=== PATIENT | male | born 1965 | race Caucasian/White ===

== ENCOUNTER 2020-05-28 17:45 | Inpatient (IN) | payer BC ==
[~2020-05-28] VITALS: Ht 175.3 cm; Wt 99.5 kg
[2020-05-28 21:10] LABS: BASO # 0.1 x10^3/uL (0.0-0.2); BASO % 2 % (0-3); EOS # 0.1 x10^3/uL (0.0-0.7); EOS % 2 % (0-3); HEMATOCRIT 22.4 % (39.0-53.0); LYMPH # 2.4 x10^3/uL (1.0-4.8); LYMPH % 34 % (24-48); MEAN CORPUSCULAR HEMOGLOBIN 17 pg (25-35); MEAN CORPUSCULAR HGB CONC 29 g/dL (31-37); MEAN CORPUSCULAR VOLUME 57 fL (79-100); MONO # 0.7 x10^3/uL (0.0-1.1); MONO % 11 % (0-9); NEUT # 3.5 x10^3/uL (1.8-7.7); NEUT % 51 % (31-73); PLATELET COUNT 329 x10^3/uL (140-400); RED BLOOD COUNT 3.94 x10^6/uL (4.30-5.70); RED CELL DISTRIBUTION WIDTH 17.9 % (11.5-14.5); WHITE BLOOD COUNT 6.9 x10^3/uL (4.0-11.0)
[2020-05-28 21:14] LABS: HEMOGLOBIN 6.6 g/dL (13.0-17.5)
[2020-05-28 21:16] LABS: CALCIUM 8.4 mg/dL (8.5-10.1); CREATININE 1.1 mg/dL (0.7-1.3); GFR 70.3; POTASSIUM 3.9 mmol/L (3.5-5.1)
[2020-05-28 21:23] LABS: ALBUMIN 3.8 g/dL (3.4-5.0); ALBUMIN/GLOBULIN RATIO 1.1 (1.0-1.7); TOTAL BILIRUBIN 0.3 mg/dL (0.2-1.0); TOTAL PROTEIN 7.4 g/dL (6.4-8.2)
--- NOTE | 2020-05-28 21:26 | PHYS DOC ---
Past Medical History Past Medical History: Asthma Past Surgical History: No Surgical History Smoking Status: Never Smoker Alcohol Use: Occasionally General Adult EDM: Chief Complaint: ABNORMAL LABS HPI: HPI: Patient is a 54 year old male who saw his doctor this week for headaches has been going on for quite some time as well as fatigue. Patient had blood work drawn that showed hemoglobin of 6 and was sent in for evaluation. Patient describes some dizziness and dyspnea with exertion as well as extreme fatigue. Patient denies any pain right now but has had some intermittent headaches over the last several months. Patient denies any rectal bleeding. Review of Systems: Review of Systems: Constitutional: Denies fever or chills. [] Complains of generalized fatigue Eyes: Denies change in visual acuity. [] HENT: Denies nasal congestion or sore throat. [] Respiratory: Denies cough or shortness of breath. [] Cardiovascular: Denies chest pain or edema. [] GI: Denies abdominal pain, nausea, vomiting, bloody stools or diarrhea. [] : Denies dysuria. [] Musculoskeletal: Denies back pain or joint pain. [] Integument: Denies rash. [] Neurologic: Complains of intermittent headache but no focal weakness or sensory changes. [] Endocrine: Denies polyuria or polydipsia. [] Lymphatic: Denies swollen glands. [] Psychiatric: Denies depression or anxiety. [] Heart Score: Risk Factors: Risk Factors: DM, Current or recent (<one month) smoker, HTN, HLP, family history of CAD, obesity. Risk Scores: Score 0 - 3: 2.5% MACE over next 6 weeks - Discharge Home Score 4 - 6: 20.3% MACE over next 6 weeks - Admit for Clinical Observation Score 7 - 10: 72.7% MACE over next 6 weeks - Early Invasive Strategies Physical Exam: PE: Constitutional: Well developed, well nourished, no acute distress, non-toxic appearance. [] HENT: Normocephalic, atraumatic, bilateral external ears normal, moist mucosa nose normal. [] Eyes: PERRLA, EOMI, pale conjunctiva l, no discharge. [] Neck: Normal range of motion, no tenderness, supple, no stridor. [] Cardiovascular:Heart rate regular rhythm, pulses intact cap refill brisk Lungs & Thorax: Bilateral breath sounds clear, no respiratory distress Abdomen: soft, no tenderness, no masses, no pulsatile masses. [] Skin: Back: No tenderness, no CVA tenderness. [] Extremities: No tenderness, no cyanosis, no clubbing, ROM intact, no edema. [] Neurologic: Alert and oriented X 3, normal motor function, normal sensory function, no focal deficits noted. [] Psychologic: Affect normal, judgement normal, mood normal. [] Current Patient Data: Labs: Laboratory Tests Test 05/28/20 21:00 05/28/20 21:25 05/28/20 21:50 White Blood Count 6.9 x10^3/uL Red Blood Count 3.94 x10^6/uL Hemoglobin 6.6 g/dL Hematocrit 22.4 % Mean Corpuscular Volume 57 fL Mean Corpuscular Hemoglobin 17 pg Mean Corpuscular Hemoglobin Concent 29 g/dL Red Cell Distribution Width 17.9 % Platelet Count 329 x10^3/uL Neutrophils (%) (Auto) 51 % Lymphocytes (%) (Auto) 34 % Monocytes (%) (Auto) 11 % Eosinophils (%) (Auto) 2 % Basophils (%) (Auto) 2 % Neutrophils # (Auto) 3.5 x10^3/uL Lymphocytes # (Auto) 2.4 x10^3/uL Monocytes # (Auto) 0.7 x10^3/uL Eosinophils # (Auto) 0.1 x10^3/uL Basophils # (Auto) 0.1 x10^3/uL Platelet Estimate Adequate Large Platelets Mod Polychromasia Slight Hypochromasia Marked Anisocytosis Slight Microcytosis Marked Tear Drop Cells Ovalocytes Mod Sodium Level 141 mmol/L Potassium Level 3.9 mmol/L Chloride Level 106 mmol/L Carbon Dioxide Level 25 mmol/L Anion Gap 10 Blood Urea Nitrogen 11 mg/dL Creatinine 1.1 mg/dL Estimated GFR (Cockcroft-Gault) 70.3 BUN/Creatinine Ratio 10 Glucose Level 115 mg/dL Calcium Level 8.4 mg/dL Iron Level 10 ug/dL Ferritin 3 ng/mL Total Bilirubin 0.3 mg/dL Aspartate Amino Transf (AST/SGOT) 25 U/L Alanine Aminotransferase (ALT/SGPT) 30 U/L Alkaline Phosphatase 78 U/L Lactate Dehydrogenase 180 U/L Total Protein 7.4 g/dL Albumin 3.8 g/dL Albumin/Globulin Ratio 1.1 Prothrombin Time 14.5 SEC Prothromb Time International Ratio 1.2 Activated Partial Thromboplast Time 25 SEC Stool Occult Blood Negative Laboratory Tests Test 05/28/20 21:00 05/28/20 21:50 White Blood Count 6.9 x10^3/uL Red Blood Count 3.94 x10^6/uL Hemoglobin 6.6 g/dL Hematocrit 22.4 % Mean Corpuscular Volume 57 fL Mean Corpuscular Hemoglobin 17 pg Mean Corpuscular Hemoglobin Concent 29 g/dL Red Cell Distribution Width 17.9 % Platelet Count 329 x10^3/uL Neutrophils (%) (Auto) 51 % Lymphocytes (%) (Auto) 34 % Monocytes (%) (Auto) 11 % Eosinophils (%) (Auto) 2 % Basophils (%) (Auto) 2 % Neutrophils # (Auto) 3.5 x10^3/uL Lymphocytes # (Auto) 2.4 x10^3/uL Monocytes # (Auto) 0.7 x10^3/uL Eosinophils # (Auto) 0.1 x10^3/uL Basophils # (Auto) 0.1 x10^3/uL Platelet Estimate Adequate Large Platelets Mod Polychromasia Slight Hypochromasia Marked Anisocytosis Slight Microcytosis Marked Tear Drop Cells Ovalocytes Mod Sodium Level 141 mmol/L Potassium Level 3.9 mmol/L Chloride Level 106 mmol/L Carbon Dioxide Level 25 mmol/L Anion Gap 10 Blood Urea Nitrogen 11 mg/dL Creatinine 1.1 mg/dL Estimated GFR (Cockcroft-Gault) 70.3 BUN/Creatinine Ratio 10 Glucose Level 115 mg/dL Calcium Level 8.4 mg/dL Total Bilirubin 0.3 mg/dL Aspartate Amino Transf (AST/SGOT) 25 U/L Alanine Aminotransferase (ALT/SGPT) 30 U/L Alkaline Phosphatase 78 U/L Total Protein 7.4 g/dL Albumin 3.8 g/dL Albumin/Globulin Ratio 1.1 Stool Occult Blood Negative Laboratory Tests Test 05/28/20 21:00 White Blood Count 6.9 x10^3/uL (4.0-11.0) Red Blood Count 3.94 x10^6/uL (4.30-5.70) L Hemoglobin 6.6 g/dL (13.0-17.5) *L Hematocrit 22.4 % (39.0-53.0) L Mean Corpuscular Volume 57 fL (79-100) L Mean Corpuscular Hemoglobin 17 pg (25-35) L Mean Corpuscular Hemoglobin Concent 29 g/dL (31-37) L Red Cell Distribution Width 17.9 % (11.5-14.5) H Platelet Count 329 x10^3/uL (140-400) Neutrophils (%) (Auto) 51 % (31-73) Lymphocytes (%) (Auto) 34 % (24-48) Monocytes (%) (Auto) 11 % (0-9) H Eosinophils (%) (Auto) 2 % (0-3) Basophils (%) (Auto) 2 % (0-3) Neutrophils # (Auto) 3.5 x10^3/uL (1.8-7.7) Lymphocytes # (Auto) 2.4 x10^3/uL (1.0-4.8) Monocytes # (Auto) 0.7 x10^3/uL (0.0-1.1) Eosinophils # (Auto) 0.1 x10^3/uL (0.0-0.7) Basophils # (Auto) 0.1 x10^3/uL (0.0-0.2) Platelet Estimate Pending Sodium Level 141 mmol/L (136-145) Potassium Level 3.9 mmol/L (3.5-5.1) Chloride Level 106 mmol/L (98-107) Carbon Dioxide Level 25 mmol/L (21-32) Anion Gap 10 (6-14) Blood Urea Nitrogen 11 mg/dL (8-26) Creatinine 1.1 mg/dL (0.7-1.3) Estimated GFR (Cockcroft-Gault) 70.3 BUN/Creatinine Ratio 10 (6-20) Glucose Level 115 mg/dL (70-99) H Calcium Level 8.4 mg/dL (8.5-10.1) L Total Bilirubin 0.3 mg/dL (0.2-1.0) Aspartate Amino Transferase (AST) 25 U/L (15-37) Alanine Aminotransferase (ALT) 30 U/L (16-63) Alkaline Phosphatase 78 U/L (46-116) Total Protein 7.4 g/dL (6.4-8.2) Albumin 3.8 g/dL (3.4-5.0) Albumin/Globulin Ratio 1.1 (1.0-1.7) Laboratory Tests 05/28/20 21:00 Laboratory Tests 05/28/20 21:00 Vital Signs: Vital Signs Date Time Temp Pulse Resp B/P (MAP) Pulse Ox O2 Delivery O2 Flow Rate FiO2 05/28/20 19:25 98.6 78 18 171/98 (122) 100 Room Air 98.6 EKG: EKG: [] EKG interpreted by me normal sinus rhythm rate 65 left axis deviation, normal ST segments normal intervals Radiology/Procedures: Radiology/Procedures: [][facility] [address] [place] [address] IMAGING REPORT Signed PATIENT: RADU LEES DACCOUNT: [id number] : 1965 LOCATION: ER AGE: 54 SEX: M EXAM STATUS: REG ER ORD. PHYSICIAN: RUMA FRIEDMAN MD REASON: WEAKNESS PROCEDURE: PORTABLE CHEST 1V EXAM: AP View of the chest DATE: 05/28/2020 8:57 PM INDICATION: Reason: WEAKNESS / Spl. Instructions: / History: COMPARISON: No Prior FINDINGS: The heart is not enlarged. Mediastinal and hilar contours are normal. No focal parenchymal airspace opacity. No pleural effusion or pneumothorax. Retrocardiac density may represent hiatal hernia. IMPRESSION: 1. No radiographic evidence for acute cardiopulmonary process. 2. Retrocardiac density may represent hiatal hernia. Electronically signed by: Aaron Gottlieb MD (05/28/2020 9:39 PM) [facility] DICTATED and SIGNED BY: AARON GOTTLIEB MD DATE: 05/28/202138 Course & Med Decision Making: Course & Med Decision Making Pertinent Labs and Imaging studies reviewed. (See chart for details) [] 54-year-old male presents with symptomatic anemia. Patient found to have a hemoglobin of 6. Patient is hemodynamically stable. I discussed the case with Dr. Celeste and we will hold off on transfusion now until he is seen by hematology oncology so that they can complete their evaluation for the etiology of his anemia. Dragon Disclaimer: Dragon Disclaimer: This electronic medical record was generated, in whole or in part, using a voice recognition dictation system. Departure Departure Impression: Primary Impression: Symptomatic anemia Disposition: 09 ADMITTED INPT THIS HOSP Admitting Physician: AG (DENNISE) Condition: STABLE Referrals: NON,STAFF (PCP) RUMA FRIEDMAN MD May 28, 2020 21:26
--- NOTE | 2020-05-28 21:42 | RAD ---
EXAM: AP View of the chest DATE: 05/28/2020 8:57 PM INDICATION: Reason: WEAKNESS / Spl. Instructions: / History: COMPARISON: No Prior FINDINGS: The heart is not enlarged. Mediastinal and hilar contours are normal. No focal parenchymal airspace opacity. No pleural effusion or pneumothorax. Retrocardiac density may represent hiatal hernia. IMPRESSION: 1. No radiographic evidence for acute cardiopulmonary process. 2. Retrocardiac density may represent hiatal hernia. Electronically signed by: Aaron Serra MD (05/28/2020 9:39 PM) [facility]
[2020-05-28 21:58] LABS: ANISOCYTOSIS SLIGHT; HYPOCHROMIA MARKED; MICROCYTOSIS MARKED; OVALOCYTES MOD; PLT ESTIMATE ADEQUATE (ADEQUATE); POLYCHROMASIA SLIGHT
[2020-05-28 22:10] LABS: FECAL OB PT NEGATIVE (NEG)
[2020-05-28 22:12] LABS: PROTHROMBIN TIME PATIENT 14.5 SEC (11.7-14.0)
[2020-05-28] MEDS ORDERED: ONDANSETRON PF 4 MG/2 ML VIAL. IV PRN (22:15)
[2020-05-29] VITALS (13 sets, daily range): BP systolic 118–154; BP diastolic 72–85
[2020-05-29] MEDS ORDERED: OMEP20CA16 PO (00:50)
[2020-05-29] MEDS ORDERED: UBRO100T PO (00:50)
[2020-05-29] MEDS ORDERED: MELO7.5T29 PO (00:50)
[2020-05-29] MEDS ORDERED: LOSA100T14 PO (00:50)
[2020-05-29] MEDS ORDERED: ALBU2.5V8 PO (00:50)
[2020-05-29] MEDS ORDERED: FLUT1DIS5 INH (00:50)
[2020-05-29] MEDS ORDERED: ALBUTEROL SULFATE 2.5 MG/3 ML NEBU. INH PRN (01:00)
--- NOTE | 2020-05-29 04:58 | NUR ---
The patient, RADU LEES, 54 y/o, M admitted by CARLOTA BOWDEN MD, was given written information regarding hospital policies, unit procedures and contact persons. 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
--- NOTE | 2020-05-29 05:02 | NUR ---
Contacted Dr. Celeste and restarted patients home medications and reviewed lab and awaiting consult to review labs.
[2020-05-29] MEDS: ALBUTEROL SULFATE 2.5 MG/3 ML NEBU. NEB SCH ×4 (07:33→20:42)
[2020-05-29] MEDS: BUDESONIDE 0.5 MG/2 ML NEBU. NEB SCH ×2 (07:33→20:00)
[2020-05-29] MEDS: MELOXICAM 7.5 MG TABLET PO SCH (09:07)
[2020-05-29] MEDS: LOSARTAN POTASSIUM 50 MG TABLET. PO SCH (09:07)
--- NOTE | 2020-05-29 09:07 | PDOC ---
FOLLOW UP Brief Hematology note: Patient is a 54 year old with microcytic anemia. He presented with fatigue and headache and was found to have Hb 6.7. No prior labs available for comparison. I recommended lab work at this time including B12, iron panel, epo level, SPEP, free light chains, LDH and haptoglobin. Can hold off on transfusion at this time. Recommend GI eval if labs indicate iron deficiency. Full consult to follow. Gómez Aragon MD Hematology HEATHER ARAGON MD May 29, 2020 09:07
[2020-05-29] MEDS: PANTOPRAZOLE 40 MG TABLET.DR. PO SCH (09:08)
[2020-05-29] MEDS: ACETAMINOPHEN 325 MG TABLET. PO PRN ×2 (09:09→16:19)
--- NOTE | 2020-05-29 11:52 | HP ---
ADMIT DATE: 05/29/2020 CHIEF COMPLAINT: Shortness of breath and abnormal labs. HISTORY OF PRESENT ILLNESS: The patient is a pleasant 54-year-old male who works at the [employer] in [place]. 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 Basically, he has been short of breath. He has been fatigued for several weeks. He went to his doctor to have a checkup and his hemoglobin was 6. He was told to come to the ER. The patient is now being admitted. We are going to transfuse him. I just called the quiller operator. They are going to be seeing the patient. We are also going to consult GI to consider endoscopy. It should be noted that the patient rates his symptoms at 7/10. He has associated anxiety and he tried increasing his home meds, but that did not work, described his symptoms as irritating. PAST MEDICAL HISTORY: Asthma. ALLERGIES: None. FAMILY HISTORY: Diabetes. SOCIAL HISTORY: He does not drink, smoke or take drugs. He works at the [employer]. 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 His also works at the [employer]. MEDICATIONS: Reviewed, please refer to the MRAD. REVIEW OF SYSTEMS: GENERAL: He complains weakness. SKIN: No bruising, hair changes or rashes. HEENT: He complains of headache. HEART: No history of palpitations, chest pain or shortness of breath on exertion. PULMONARY: He complains of shortness of breath. GASTROINTESTINAL: Denies changes in appetite, nausea, vomiting, diarrhea or constipation. GENITOURINARY: No history of frequency, urgency, hesitancy or nocturia. NEUROLOGIC: Denies history of numbness, tingling, tremor or weakness. PSYCHIATRIC: No history of panic, anxiety or depression. ENDOCRINE: No history of heat or cold intolerance, polyuria or polydipsia. EXTREMITIES: Denies muscle weakness, joint pain, pain on walking or stiffness. PHYSICAL EXAMINATION: VITALS: Within normal limits and are stable. GENERAL: No apparent distress. Alert and oriented. HEENT: Normal cephalic atraumatic, external auditory canals are patent. Eyes: Extraocular muscles are intact, pupils are equally round and reactive to light and accommodation. MUSCULOSKELETAL: Well developed, well nourished, good range of motion. ENDOCRINE: No thyromegaly was palpated. LYMPHATICS: No cervical chain or axillary nodes were noted. HEMATOPOIETIC: No bruising. NECK: Supple, no JVD, no thyromegaly was noted. LUNGS: Clear to auscultation in all lung jones without rhonchi or wheezing. HEART: RRR, S1, S2 present. Peripheral pulses intact, no obvious murmurs were noted. ABDOMEN: Soft, nontender. Positive bowel sounds no organomegaly, normal bowel sounds. EXTREMITIES: Without any cyanosis, clubbing, or edema. Pedal pulses intact, Homans sign is negative. NEUROLOGIC: Normal speech, normal tone. A and O x 3, moves all extremities, no obvious focal deficits. PSYCHIATRIC: Normal affect, normal mood. Stable. SKIN: He is pale. VASCULAR: Good capillary refill, neurovascular bundle appears to be intact. LABORATORY DATA: Hemoglobin is 6.6. ASSESSMENT AND PLAN: Severe anemia with incidental finding of a headache. The patient has been admitted. We are going to transfuse 1 unit of packed red blood cells. Consult Hematology/Oncology. Consult GI. DVT prophylaxis. Trend labs. Home meds. Full code. Fecal occult blood testing, p.r.n. Zofran, p.r.n. Toradol. Iron studies. IV fluids. COOPERL Danny HAWKINS DO DR: XIMENA/[place] JOB#: [id number] / [id number]
[2020-05-29 11:56] LABS: URIC ACID 5.4 mg/dL (3.5-7.2)
[2020-05-29] MEDS: KETOROLAC 30 MG/ML VIAL. IVP PRN ×2 (13:54→23:22)
[2020-05-29 20:20] LABS: HEMATOCRIT 24.7 % (39.0-53.0); HEMOGLOBIN 7.3 g/dL (13.0-17.5)
[2020-05-29 23:10] LABS: TRANSFERRIN 421 mg/dL (177-329)
[2020-05-30 04:30] VITALS: BP 123/77
[2020-05-30 07:00] VITALS: BP 132/79
[2020-05-30] MEDS: BUDESONIDE 0.5 MG/2 ML NEBU. NEB SCH ×2 (08:00→20:00)
[2020-05-30] MEDS: LOSARTAN POTASSIUM 50 MG TABLET. PO SCH (08:58)
[2020-05-30] MEDS: PANTOPRAZOLE 40 MG TABLET.DR. PO SCH (08:58)
[2020-05-30] MEDS: MELOXICAM 7.5 MG TABLET PO SCH (08:59)
--- NOTE | 2020-05-30 09:59 | PDOC2 ---
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. For awhile has noted some SOA and dizziness w/ exertion - had to hire someone to mow his lawn. Established care w/ new PCP and had labs - noted w/ anemia and advised to come to the hospital. Denies hematemesis, hematochezia, and melena. Unaware of previous h/o anemia. Denies reflux/heartburn but does have a h/o dysphagia (solids get stuck in midchest, go down w/ water) that is improved w/ daily PPI. No n/v, abd pain, diarrhea, constipation, change in appetite, or weight loss. No previous EGD or colonoscopy. No GB, liver, pancreas, or PUD history. Recently given Rx for Meloxicam - no NSAID use before. PMH: PMH: HTN, asthma, tension headaches, dysphagia left ankle surgery FH: Family History: No pertinent hx (denies GI cancers) Social History: Smoke: Quit ALCOHOL: rare Drugs: None ROS: GEN: +weakness HEENT: Denies blurred vision, sore throat CV: Denies chest pain RESP: +SOA +cough GI: Per HPI : Denies hematuria, dysuria ENDO: Denies weight changes NEURO: +dizziness +headaches MSK: Denies weakness, joint pain/swelling SKIN: Denies jaundice, pruritus Vitals: Vitals: Vital Signs Date Time Temp Pulse Resp B/P (MAP) Pulse Ox O2 Delivery O2 Flow Rate FiO2 05/30/20 08:58 58 123/77 05/30/20 07:00 98.3 97 98.3 05/30/20 04:30 16 Room Air Labs: Labs: Laboratory Tests Test 05/29/20 11:07 05/29/20 20:05 Red Blood Count 3.86 x10^6/uL (4.30-5.70) Absolute Reticulocyte Count 0.070 x10^6/uL (0.020-0.120) Percent Reticulocyte Count 1.8 % (0.5-2.3) Immature Reticulocyte Fraction 0.39 (0.20-0.60) Haptoglobin 123 mg/dL (29-370) Uric Acid 5.4 mg/dL (3.5-7.2) Iron Level 14 ug/dL (65-175) Total Iron Binding Capacity 504 ug/dL (250-450) Iron Saturation 3 % (15-34) Ferritin 3 ng/mL (26-388) Lactate Dehydrogenase 167 U/L (85-227) Vitamin B12 Level 418 pg/mL (247-911) Hemoglobin 7.3 g/dL (13.0-17.5) Hematocrit 24.7 % (39.0-53.0) Mean Corpuscular Hemoglobin Concent 30 g/dL (31-37) Allergies: Coded Allergies: No Known Drug Allergies (Unverified , 05/28/20) Medications: Current Medications Medications (Trade) Dose Ordered Sig/Bonifacio Route PRN Reason Start Time Stop Time Status Last Admin Dose Admin Ketorolac Tromethamine (Toradol 30mg Vial) 30 mg PRN Q6HRS PRN IVP INFLAMMATION 05/29/20 13:45 06/03/20 13:44 05/29/20 23:22 Imaging: Imaging: CXR 05/28 IMPRESSION: 1. No radiographic evidence for acute cardiopulmonary process. 2. Retrocardiac density may represent hiatal hernia. CXR 05/30 pending PE: GEN: NAD HEENT: Atraumatic, PERRL LUNGS: diminished, dry cough HEART: RRR ABD: NABS, S/ND/NT EXTREMITY: No edema SKIN: pale NEURO/PSYCH: A & O 3 A/P: A/P: SOA, dizziness - chronic/worsening JUAN PABLO, Hemoccult negative - Hgb improved a bit w/ 1 unit pRBCs Chronic intermittent dysphagia - improved w/ PPI, no previous EGD - ?hiatal hernia on CXR CRC screen - none R/o COVID-19 Tension headaches - per primary -- Await COVID testing. Monitor Hgb, transfuse as needed. Consider IV iron. Continue PPI. Has Mobic ordered here - ideally would avoid NSAIDs from GI standpoint. Should have EGD and colonoscopy - will review timing w/ Dr. De La Rosa. Hematology following as well. NAVEEN COULTER May 30, 2020 09:59
[2020-05-30] MEDS: ALBUTEROL SULFATE 2.5 MG/3 ML NEBU. NEB SCH (10:56)
[2020-05-30 11:00] VITALS: BP 146/67
--- NOTE | 2020-05-30 11:45 | RAD ---
EXAM: CHEST AP ONLY INDICATION: Reason: worsening cough / Spl. Instructions: / History: . TECHNIQUE: Single view COMPARISON: 05/28/2020 FINDINGS: The heart size is normal. The great vessels appear unremarkable. Stable retrocardiac density compatible with a hiatal hernia. Otherwise there is no hilar or mediastinal mass. The lungs are clear. There is no pleural effusion or pneumothorax. There are no significant osseous abnormalities. IMPRESSION: No active cardiopulmonary disease. Stable hiatal hernia. Electronically signed by: Francisco Aggarwal MD (05/30/2020 11:42 AM) [id number]
--- NOTE | 2020-05-30 12:30 | PDOC2 ---
CONSULT Date of Consult Date of Consult DATE: 05/30/20 TIME: 12:23 Reason for Consult Reason for Consult: Anemia Referring Physician Referring Physician: Dr. Alexander Identification/Chief Complaint Chief Complaint Fatigue and shortness of breath Source Source: Chart review, Patient History of Present Illness Reason for Visit: Sachin Gallardo is a 54-year-old male who has been admitted to the hospital for further evaluation and management of anemia. He was initially seen in the emergency room due to worsening fatigue and shortness of breath. 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 He reports history of shortness of breath and fatigue that dates back to several weeks. He recently obtained lab work at his primary care physician's office and was asked to go to the emergency room due to significant anemia with hemoglobin of 6. He has been admitted to the hospital and has received PRBC transfusion with subsequent improvement in his hemoglobin. He denies any associated symptoms. He has been seen by GI service. Hematology consultation has been sought due to anemia. He denies hematemesis, melena, hematochezia Social History Quit ALCOHOL: rare Drugs: None Current Problem List Problem List Problems Medical Problems: (1) Symptomatic anemia Status: Acute Current Medications Current Medications Current Medications Ondansetron HCl (Zofran) 4 mg PRN Q8HRS PRN IV NAUSEA/VOMITING 1ST CHOICE; Start 05/28/20 at 22:15; Stop 05/29/20 at 22:14; Status DC Albuterol Sulfate (Ventolin Neb Soln) 2.5 mg PRN Q4HRS PRN INH SHORTNESS OF BREATH; Start 05/29/20 at 01:00 Meloxicam (Mobic) 7.5 mg DAILY PO Last administered on 05/30/20at 08:59; Start 05/29/20 at 09:00 Budesonide (Pulmicort) 0.5 mg RTBID NEB Last administered on 05/29/20at 07:33; Start 05/29/20 at 08:00 Losartan Potassium (Cozaar) 100 mg DAILY PO Last administered on 05/30/20at 08:58; Start 05/29/20 at 09:00 Pantoprazole Sodium (Protonix) 40 mg DAILYAC PO Last administered on 05/30/20at 08:58; Start 05/29/20 at 07:30 Albuterol Sulfate (Ventolin Neb Soln) 2.5 mg RTQID NEB Last administered on 05/29/20at 07:33; Start 05/29/20 at 08:00; Stop 05/29/20 at 14:45; Status DC Acetaminophen (Tylenol) 650 mg PRN Q6HRS PRN PO MILD PAIN / TEMP > 100.3'F Last administered on 05/29/20at 16:19; Start 05/29/20 at 07:30 Ketorolac Tromethamine (Toradol 30mg Vial) 30 mg PRN Q6HRS PRN IVP INFLAMMATION Last administered on 05/29/20at 23:22; Start 05/29/20 at 13:45; Stop 06/03/20 at 13:44 Albuterol Sulfate (Ventolin Neb Soln) 2.5 mg [id number] NEB ; Start 05/29/20 at 18:00 Active Scripts Active Reported Advair 500-50 Diskus (Fluticasone/Salmeterol) 1 Each Disk.w.dev 1 Puff INH DAILY Proair Hfa (Albuterol Sulfate) 8.5 Gm Hfa.aer.ad 2 Puff PO PRN Q4HRS PRN Ubrelvy (Ubrogepant) 100 Mg Tablet 100 Mg PO PRN PRN Losartan Potassium 100 Mg Tablet 1 Tab PO DAILY Omeprazole 20 Mg Capsule.dr 1 Cap PO DAILY Meloxicam 7.5 Mg Tablet 1 Tab PO DAILY Allergies Allergies: Coded Allergies: No Known Drug Allergies (Unverified , 05/28/20) ROS General: YES: Fatigue, Malaise; No: Chills, Night Sweats PSYCHOLOGICAL ROS: No: Anxiety, Behavioral Disorder Eyes: No Blurry vision, No Decreased vision HEENT: No: Heacaches, Visual Changes ALLERGY AND IMMUNOLOGY: No: Nasal Congestion Hematological and Lymphatic: YES: Blood Transfusions; No: Blood Clots ENDOCRINE: YES: Malaise/lethargy Respiratory: YES: Shortness of breath; No: Cough, Hemoptysis Cardiovascular: No Chest Pain, No Palpitations Gastrointestinal: No Nausea, No Vomiting Genitourinary: No Dysuria, No Hematuria, No Urgency Musculoskeletal: No Gait Disturbance, No Joint Pain Neurological: No Confusion, No Dizziness Skin: No Dry Skin, No Eczema Physical Exam General: Alert, Oriented X3 HEENT: Atraumatic Lungs: Clear to auscultation Heart: Regular rate Abdomen: Normal bowel sounds, Soft Extremities: No clubbing, No cyanosis Skin: No rashes, No breakdown Neuro: Normal speech MUSCULOSKELETAL: No swelling Vitals VITALS Vital Signs Date Time Temp Pulse Resp B/P (MAP) Pulse Ox O2 Delivery O2 Flow Rate FiO2 05/30/20 11:00 97.8 72 18 146/67 (93) 98 Room Air 97.8 Labs Labs Laboratory Tests Test 05/28/20 21:00 05/28/20 21:25 05/28/20 21:50 05/29/20 11:07 White Blood Count 6.9 x10^3/uL (4.0-11.0) Red Blood Count 3.94 x10^6/uL (4.30-5.70) 3.86 x10^6/uL (4.30-5.70) Hemoglobin 6.6 g/dL (13.0-17.5) Hematocrit 22.4 % (39.0-53.0) Mean Corpuscular Volume 57 fL (79-100) Mean Corpuscular Hemoglobin 17 pg (25-35) Mean Corpuscular Hemoglobin Concent 29 g/dL (31-37) Red Cell Distribution Width 17.9 % (11.5-14.5) Platelet Count 329 x10^3/uL (140-400) Neutrophils (%) (Auto) 51 % (31-73) Lymphocytes (%) (Auto) 34 % (24-48) Monocytes (%) (Auto) 11 % (0-9) Eosinophils (%) (Auto) 2 % (0-3) Basophils (%) (Auto) 2 % (0-3) Neutrophils # (Auto) 3.5 x10^3/uL (1.8-7.7) Lymphocytes # (Auto) 2.4 x10^3/uL (1.0-4.8) Monocytes # (Auto) 0.7 x10^3/uL (0.0-1.1) Eosinophils # (Auto) 0.1 x10^3/uL (0.0-0.7) Basophils # (Auto) 0.1 x10^3/uL (0.0-0.2) Platelet Estimate Adequate (ADEQUATE) Large Platelets Mod Polychromasia Slight Hypochromasia Marked Anisocytosis Slight Microcytosis Marked Tear Drop Cells Ovalocytes Mod Haptoglobin 122 mg/dL (29-370) 123 mg/dL (29-370) Sodium Level 141 mmol/L (136-145) Potassium Level 3.9 mmol/L (3.5-5.1) Chloride Level 106 mmol/L (98-107) Carbon Dioxide Level 25 mmol/L (21-32) Anion Gap 10 (6-14) Blood Urea Nitrogen 11 mg/dL (8-26) Creatinine 1.1 mg/dL (0.7-1.3) Estimated GFR (Cockcroft-Gault) 70.3 BUN/Creatinine Ratio 10 (6-20) Glucose Level 115 mg/dL (70-99) Calcium Level 8.4 mg/dL (8.5-10.1) Iron Level 10 ug/dL (65-175) 14 ug/dL (65-175) Transferrin 421 mg/dL (177-329) Ferritin 3 ng/mL (26-388) 3 ng/mL (26-388) Total Bilirubin 0.3 mg/dL (0.2-1.0) Aspartate Amino Transf (AST/SGOT) 25 U/L (15-37) Alanine Aminotransferase (ALT/SGPT) 30 U/L (16-63) Alkaline Phosphatase 78 U/L (46-116) Lactate Dehydrogenase 180 U/L (85-227) 167 U/L (85-227) Total Protein 7.4 g/dL (6.4-8.2) Albumin 3.8 g/dL (3.4-5.0) Albumin/Globulin Ratio 1.1 (1.0-1.7) Prothrombin Time 14.5 SEC (11.7-14.0) Prothromb Time International Ratio 1.2 (0.8-1.1) Activated Partial Thromboplast Time 25 SEC (24-38) Stool Occult Blood Negative (NEG) Absolute Reticulocyte Count 0.070 x10^6/uL (0.020-0.120) Percent Reticulocyte Count 1.8 % (0.5-2.3) Immature Reticulocyte Fraction 0.39 (0.20-0.60) Uric Acid 5.4 mg/dL (3.5-7.2) Total Iron Binding Capacity 504 ug/dL (250-450) Iron Saturation 3 % (15-34) Vitamin B12 Level 418 pg/mL (247-911) Test 11/8/20 20:05 Hemoglobin 7.3 g/dL (13.0-17.5) Hematocrit 24.7 % (39.0-53.0) Mean Corpuscular Hemoglobin Concent 30 g/dL (31-37) Laboratory Tests Test 05/29/20 20:05 Hemoglobin 7.3 g/dL (13.0-17.5) Hematocrit 24.7 % (39.0-53.0) Mean Corpuscular Hemoglobin Concent 30 g/dL (31-37) Assessment/Plan Assessment/Plan Assessment: Iron deficiency anemia Fatigue secondary to anemia Recommendations: -Results of iron studies which show significant iron deficiency. -We will order iron sucrose 200 mg x 1 today given significant iron deficiency. Continue oral iron replacement after hospital discharge -Given significant iron deficiency of unclear etiology, would recommend diagnostic EGD and colonoscopy. GI is following. -Can consider additional IV iron as outpatient. Can determine need for this depending on hospital course Gómez Aragon MD Medical Oncology/Hematology Ph: [phone] HEATHER ARAGON MD May 30, 2020 12:30
--- NOTE | 2020-05-30 12:47 | NUR ---
SS following for discharge planning. SS reviewed pt chart and discussed with pt RN. Pt is from home with spouse and is currently on room air. 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 GI and Hematology consulted. COVID19 test pending. Per RN, pt being transferred to room 662. Brittney CORRIGAN, notified.
--- NOTE | 2020-05-30 12:57 | PDOC ---
[employer] PROGRESS NOTE Date of Service DOS: DATE: 05/30/20 TIME: 12:52 Chief Complaint Chief Complaint Severe anemia with incidental finding of a headache. The patient has been admitted. We are going to transfuse 1 unit of packed red blood cells. Consult Hematology/Oncology. Consult GI. DVT prophylaxis. Trend labs. Home meds. Full code. Fecal occult blood testing, p.r.n. Zofran, p.r.n. Toradol. Iron studies. IV fluids. History of Present Illness History of Present Illness The patient is a pleasant 54-year-old male who works at the [employer] in [place]. 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 Basically, he has been short of breath. He has been fatigued for several weeks. He went to his doctor to have a checkup and his hemoglobin was 6. He was told to come to the ER. The patient is now being admitted. We are going to transfuse him. I just called the belt loop cutter. They are going to be seeing the patient. We are also going to consult GI to consider endoscopy. It should be noted that the patient rates his symptoms at 7/10. He has associated anxiety and he tried increasing his home meds, but that did not work, described his symptoms as irritating. 04/29: Patient evaluated bedside. 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 He denies any history of bloody stools or dark stools. Patient does admit to history of daily Excedrin use for years. He will likely undergo endoscopy after his COVID-19 test results. Vitals/I&O Vitals/I&O: Vital Signs Date Time Temp Pulse Resp B/P (MAP) Pulse Ox O2 Delivery O2 Flow Rate FiO2 05/30/20 11:00 97.8 72 18 146/67 (93) 98 Room Air 97.8 I & O 05/29/20 05/29/20 05/30/20 15:00 23:00 07:00 Intake Total 805 ml 350 ml 200 ml Output Total 1100 ml 700 ml Balance -295 ml -350 ml 200 ml Physical Exam General: Alert, Oriented X3 Heart: Regular rate Lungs: Clear Abdomen: Normal bowel sounds, Soft Extremities: No clubbing, No cyanosis Skin: No rashes, No breakdown Labs Labs: Laboratory Tests Test 05/29/20 20:05 Hemoglobin 7.3 g/dL (13.0-17.5) Hematocrit 24.7 % (39.0-53.0) Mean Corpuscular Hemoglobin Concent 30 g/dL (31-37) Review of Systems Review of Systems: Denies abdominal pain, denies fever, denies melena. Assessment and Plan Assessmemt and Plan Problems Medical Problems: (1) Symptomatic anemia Status: Acute Comment Review of Relevant I have reviewed the following items yoni (where applicable) has been applied. Medications: Current Medications Medications (Trade) Dose Ordered Sig/Bonifacio Route PRN Reason Start Time Stop Time Status Last Admin Dose Admin Ketorolac Tromethamine (Toradol 30mg Vial) 30 mg PRN Q6HRS PRN IVP INFLAMMATION 05/29/20 13:45 06/03/20 13:44 05/29/20 23:22 Justifications for Admission Other Justification REHANA GARNER MD May 30, 2020 12:57
[2020-05-30] MEDS ORDERED: IRON SUCROSE COMPLEX 200 MG in IV NORMAL SALINE 100ML 100 ML IV ONE (14:00)
[2020-05-30 14:09] VITALS: BP 150/94
[2020-05-30 15:12] LABS: KAPPA FREE 19.8 mg/L (3.3-19.4); KAPPA LAMBDA RATIO 1.14 (0.26-1.65); LAMBDA FREE 17.3 mg/L (5.7-26.3)
[2020-05-30 19:00] VITALS: BP 137/76
[2020-05-30 23:00] VITALS: BP 138/77
[2020-05-31 03:00] VITALS: BP 131/83
[2020-05-31 06:20] LABS: BASO # 0.1 x10^3/uL (0.0-0.2); BASO % 2 % (0-3); EOS # 0.3 x10^3/uL (0.0-0.7); EOS % 4 % (0-3); HEMATOCRIT 24.3 % (39.0-53.0); HEMOGLOBIN 7.2 g/dL (13.0-17.5); LYMPH # 2.1 x10^3/uL (1.0-4.8); LYMPH % 29 % (24-48); MEAN CORPUSCULAR HEMOGLOBIN 18 pg (25-35); MEAN CORPUSCULAR HGB CONC 30 g/dL (31-37); MONO # 0.7 x10^3/uL (0.0-1.1); MONO % 10 % (0-9); NEUT % 55 % (31-73); PLATELET COUNT 297 x10^3/uL (140-400); RED BLOOD COUNT 4.06 x10^6/uL (4.30-5.70); RED CELL DISTRIBUTION WIDTH 18.3 % (11.5-14.5); WHITE BLOOD COUNT 7.2 x10^3/uL (4.0-11.0)
[2020-05-31 06:26] LABS: MEAN CORPUSCULAR VOLUME 59 fL (79-100)
[2020-05-31] MEDS: ALBUTEROL SULFATE 2.5 MG/3 ML NEBU. NEB SCH (07:00)
[2020-05-31 07:05] VITALS: BP 143/84
[2020-05-31] MEDS: BUDESONIDE 0.5 MG/2 ML NEBU. NEB SCH (08:00)
--- NOTE | 2020-05-31 08:25 | EKG ---
[facility] [address] [place] [address] Test Date: 2020-05-28 Test Time: 21:36:37 Pat Name: RADU LEES Department: Room: Gender: M Mix Mill [employer]: : 1965 Requested By: RUMA FRIEDMAN Order Number: [id number] Reading MD: Measurements Intervals [place] Rate: 65 P: 28 RI: 144 QRS: -25 QRSD: 78 T: 33 QT: 388 QTc: 408 Interpretive Statements SINUS RHYTHM LEFTWARD AXIS OTHERWISE NORMAL ECG RI6.02 No previous ECG available for comparison
--- NOTE | 2020-05-31 08:30 | NUR ---
pulmicort and ventolin nonadmin d/t patient being on covid unit.
--- NOTE | 2020-05-31 09:19 | PDOC ---
[employer] PROGRESS NOTE Date of Service DOS: DATE: 05/31/20 TIME: 09:17 Chief Complaint Chief Complaint A/P: Severe anemia - s/p 1 unit of packed red blood cells. Consult Hem atology/Oncology. Consult GI. GERD - PPI FEN - NPO PPX - SCDs, PPI FULL CODE Dispo - inpatient pending History of Present Illness History of Present Illness Mr Gallardo is a 54-year-old male with no PMHx who works at the [employer] in [place] admitted for shortness of breath and has been fatigued for several weeks. Found with outpatient Hb of 6 and instructed to come to ED. Noted with Hb 6.6, transfused 1u PRBC to 7.2, found with iron deficiency anemia. Admitted with Hematology and GI consultation. 05/30: Patient evaluated bedside. 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 He denies any history of bloody stools or dark stools. Patient does admit to history of daily Excedrin use for years. He will likely undergo endoscopy after his COVID-19 test results. Negative COVID-19. Hb to 7.2. Afebrile. No shortness of breath or cough. He is still feeling about as weak as when he was admitted. Vitals/I&O Vitals/I&O: Vital Signs Date Time Temp Pulse Resp B/P (MAP) Pulse Ox O2 Delivery O2 Flow Rate FiO2 05/31/20 03:00 98.4 70 18 131/83 (99) 94 Room Air 98.4 I & O 05/30/20 05/30/20 05/31/20 15:00 23:00 07:00 Intake Total 600 ml 550 ml Balance 600 ml 550 ml Physical Exam General: Alert, Oriented X3 Heart: Regular rate Lungs: Clear Abdomen: Normal bowel sounds, Soft Extremities: No clubbing, No cyanosis Skin: No rashes, No breakdown Labs Labs: Laboratory Tests Test 05/31/20 05:10 White Blood Count 7.2 x10^3/uL (4.0-11.0) Red Blood Count 4.06 x10^6/uL (4.30-5.70) Hemoglobin 7.2 g/dL (13.0-17.5) Hematocrit 24.3 % (39.0-53.0) Mean Corpuscular Volume 59 fL (79-100) Mean Corpuscular Hemoglobin 18 pg (25-35) Mean Corpuscular Hemoglobin Concent 30 g/dL (31-37) Red Cell Distribution Width 18.3 % (11.5-14.5) Platelet Count 297 x10^3/uL (140-400) Neutrophils (%) (Auto) 55 % (31-73) Lymphocytes (%) (Auto) 29 % (24-48) Monocytes (%) (Auto) 10 % (0-9) Eosinophils (%) (Auto) 4 % (0-3) Basophils (%) (Auto) 2 % (0-3) Neutrophils # (Auto) 4.0 x10^3/uL (1.8-7.7) Lymphocytes # (Auto) 2.1 x10^3/uL (1.0-4.8) Monocytes # (Auto) 0.7 x10^3/uL (0.0-1.1) Eosinophils # (Auto) 0.3 x10^3/uL (0.0-0.7) Basophils # (Auto) 0.1 x10^3/uL (0.0-0.2) Assessment and Plan Assessmemt and Plan Problems Medical Problems: (1) Symptomatic anemia Status: Acute Comment Review of Relevant I have reviewed the following items yoni (where applicable) has been applied. Medications: Current Medications Medications (Trade) Dose Ordered Sig/Bonifacio Route PRN Reason Start Time Stop Time Status Last Admin Dose Admin Iron Sucrose 200 mg/Sodium Chloride 110 ml @ 55 mls/hr 1X ONCE IV 05/30/20 14:00 05/30/20 15:59 DC 05/30/20 13:32 Justifications for Admission Other Justification KEVIN SANTIZO MD May 31, 2020 09:19
--- NOTE | 2020-05-31 09:55 | PDOC ---
Date of Service: DATE: 05/31/20 TIME: 09:50 Subjective: Subjective: Feels okay. No bleeding. Tolerating diet. Would like to go home. Objective: Vital Signs: Vital Signs Date Time Temp Pulse Resp B/P (MAP) Pulse Ox O2 Delivery O2 Flow Rate FiO2 05/31/20 07:05 97.2 56 20 143/84 (103) 99 Room Air 97.2 Labs: Laboratory Tests Test 05/31/20 05:10 White Blood Count 7.2 x10^3/uL Red Blood Count 4.06 x10^6/uL Hemoglobin 7.2 g/dL Hematocrit 24.3 % Mean Corpuscular Volume 59 fL Mean Corpuscular Hemoglobin 18 pg Mean Corpuscular Hemoglobin Concent 30 g/dL Red Cell Distribution Width 18.3 % Platelet Count 297 x10^3/uL Neutrophils (%) (Auto) 55 % Lymphocytes (%) (Auto) 29 % Monocytes (%) (Auto) 10 % Eosinophils (%) (Auto) 4 % Basophils (%) (Auto) 2 % Neutrophils # (Auto) 4.0 x10^3/uL Lymphocytes # (Auto) 2.1 x10^3/uL Monocytes # (Auto) 0.7 x10^3/uL Eosinophils # (Auto) 0.3 x10^3/uL Basophils # (Auto) 0.1 x10^3/uL Imaging: CXR 05/30 IMPRESSION: No active cardiopulmonary disease. Stable hiatal hernia. PE: GEN: NAD LUNGS: CTAB HEART: RRR ABD: NABS, S/ND/NT NEURO/PSYCH: A & O 3 A/P: SOA, dizziness - better JUAN PABLO - Hgb stable post transfusion (pRBC and iron), no obvious bleeding Chronic intermittent dysphagia, hiatal hernia R/o COVID-19 -- Await COVID testing. DC per primary/hematology. We discussed continuing iron in some form after discharge. Continue PPI. Would avoid Mobic (?taking for headaches per PCP) Assuming stable Hgb and no obvious bleeding, will plan for outpt EGD and colonoscopy - our office will call to arrange. Justicifation of Admission Dx: Justifications for Admission: Justification of Admission Dx: Yes NAVEEN COULTER May 31, 2020 09:55
[2020-05-31] MEDS: MELOXICAM 7.5 MG TABLET PO SCH (10:15)
[2020-05-31] MEDS: LOSARTAN POTASSIUM 50 MG TABLET. PO SCH (10:15)
[2020-05-31] MEDS: PANTOPRAZOLE 40 MG TABLET.DR. PO SCH (10:15)
[2020-05-31 11:05] VITALS: BP 126/81
--- NOTE | 2020-05-31 12:21 | NUR ---
SW following for discharge planning. Spoke with RN and reviewed chart. Pt COVID pending. SW called into pt's room, no answer. Pt on room air, regular diet. Pt from home with and family per RN. Discharge plan is home, self-care. No anticipated SW needs at discharge. SW available as needed. Addendum: 06/01/20 at 1009 by CARLEE CORRIGAN pt discharged home self-care. No further SW needs at this time.
[2020-05-31 13:12] LABS: ALBUM 3.6 g/dL (2.9-4.4); ALPHA 1 0.2 g/dL (0.0-0.4); ALPHA 2 0.7 g/dL (0.4-1.0); BETA 1.2 g/dL (0.7-1.3); GAMMA 0.9 g/dL (0.4-1.8); PROTEIN TOTAL 6.6 g/dL (6.0-8.5); SPEP AG RATIO 1.2 (0.7-1.7)
[2020-05-31] MEDS ORDERED: ASCO500C PO (14:25)
[2020-05-31] MEDS ORDERED: FERR325T72 PO (14:25)
--- NOTE | 2020-05-31 14:30 | PDOC3 ---
Discharge Summary Visit Information Date of Admission: May 28, 2020 Date of Discharge: May 31, 2020 Admitting Diagnosis: Symptomatic anemia Final Diagnosis Problems Medical Problems: (1) Symptomatic anemia Status: Acute Brief Hospital Course Allergies Allergies Coded Allergies Type Severity Reaction Last Updated Verified No Known Drug Allergies 05/28/20 No Vital Signs Vital Signs Date Time Temp Pulse Resp B/P (MAP) Pulse Ox O2 Delivery O2 Flow Rate FiO2 05/31/20 11:05 97.4 67 22 126/81 (96) 97 Room Air 97.4 Lab Results Laboratory Tests Test 05/29/20 19:40 05/29/20 20:05 05/31/20 05:10 Coronavirus (PCR) Not detected (Not Detected) Hemoglobin 7.3 g/dL (13.0-17.5) 7.2 g/dL (13.0-17.5) Hematocrit 24.7 % (39.0-53.0) 24.3 % (39.0-53.0) Mean Corpuscular Hemoglobin Concent 30 g/dL (31-37) 30 g/dL (31-37) White Blood Count 7.2 x10^3/uL (4.0-11.0) Red Blood Count 4.06 x10^6/uL (4.30-5.70) Mean Corpuscular Volume 59 fL (79-100) Mean Corpuscular Hemoglobin 18 pg (25-35) Red Cell Distribution Width 18.3 % (11.5-14.5) Platelet Count 297 x10^3/uL (140-400) Neutrophils (%) (Auto) 55 % (31-73) Lymphocytes (%) (Auto) 29 % (24-48) Monocytes (%) (Auto) 10 % (0-9) Eosinophils (%) (Auto) 4 % (0-3) Basophils (%) (Auto) 2 % (0-3) Neutrophils # (Auto) 4.0 x10^3/uL (1.8-7.7) Lymphocytes # (Auto) 2.1 x10^3/uL (1.0-4.8) Monocytes # (Auto) 0.7 x10^3/uL (0.0-1.1) Eosinophils # (Auto) 0.3 x10^3/uL (0.0-0.7) Basophils # (Auto) 0.1 x10^3/uL (0.0-0.2) Laboratory Tests Test 05/31/20 05:10 White Blood Count 7.2 x10^3/uL (4.0-11.0) Red Blood Count 4.06 x10^6/uL (4.30-5.70) Hemoglobin 7.2 g/dL (13.0-17.5) Hematocrit 24.3 % (39.0-53.0) Mean Corpuscular Volume 59 fL (79-100) Mean Corpuscular Hemoglobin 18 pg (25-35) Mean Corpuscular Hemoglobin Concent 30 g/dL (31-37) Red Cell Distribution Width 18.3 % (11.5-14.5) Platelet Count 297 x10^3/uL (140-400) Neutrophils (%) (Auto) 55 % (31-73) Lymphocytes (%) (Auto) 29 % (24-48) Monocytes (%) (Auto) 10 % (0-9) Eosinophils (%) (Auto) 4 % (0-3) Basophils (%) (Auto) 2 % (0-3) Neutrophils # (Auto) 4.0 x10^3/uL (1.8-7.7) Lymphocytes # (Auto) 2.1 x10^3/uL (1.0-4.8) Monocytes # (Auto) 0.7 x10^3/uL (0.0-1.1) Eosinophils # (Auto) 0.3 x10^3/uL (0.0-0.7) Basophils # (Auto) 0.1 x10^3/uL (0.0-0.2) Brief Hospital Course Mr Gallardo is a 54-year-old male with no PMHx who works at the [employer] in [place] admitted for shortness of breath and has been fatigued for several weeks. Found with outpatient Hb of 6 and instructed to come to ED. Noted with Hb 6.6, transfused 1u PRBC to 7.2, found with iron deficiency anemia. Admitted with Hematology and GI consultation. 05/30: Patient evaluated bedside. 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 He denies any history of bloody stools or dark stools. Patient does admit to history of daily Excedrin use for years. He will likely undergo endoscopy after his COVID-19 test results. Negative COVID-19. Hb to 7.2. Afebrile. No shortness of breath or cough. He is feeling less weak than when he was admitted. Advised to stop taking Excedrin. To take iron 325 mg and vitamin C 500 mg daily and have outpatient follow-up with GI for EGD and colonoscopy. Problem list: Severe anemia - s/p 1 unit of packed red blood cells. Consult Hematology/Oncology. Consult GI. GERD - PPI Greater than 30 minutes spent on d/c Discharge Information Condition at Discharge: Improved Follow Up: Weeks (1) Disposition/Orders: D/C to Home Scheduled Ascorbic Acid (Vitamin C) 500 Mg Capsule.er, 1 CAP PO DAILY for Iron Deficiency for 30 Days, #30 Ref 2 Prescribed by: KEVIN SANTIZO MD on 05/31/20 1425 Ferrous Sulfate (Feosol) 325 Mg Tablet, 1 TAB PO DAILY for Irond Def anemia for 30 Days, #30 Ref 2 Prescribed by: KEVIN SANTIZO MD on 05/31/20 1425 Fluticasone/Salmeterol (Advair 500-50 Diskus) 1 Each Disk.w.dev, 1 PUFF INH DAILY for Asthma, (Reported) Entered as Reported by: JASWINDER VIVEROS on 05/29/2049 Last Taken: Unknown Dose on Unknown Date & Time Last Action: Converted on 05/29/20101 by JASWINDER VIVEROS Losartan Potassium (Losartan Potassium) 100 Mg Tablet, 1 TAB PO DAILY for HTN, (Reported) Entered as Reported by: JASWINDER VIVEROS on 05/29/2049 Last Taken: Unknown Dose on 05/28/20 Last Action: Converted on 05/29/20101 by JASWINDER VIVEROS Meloxicam (Meloxicam) 7.5 Mg Tablet, 1 TAB PO DAILY for antiinflammatory, (Reported) Entered as Reported by: JASWINDER VIVEROS on 05/29/2049 Last Taken: Unknown Dose on 05/28/20 Last Action: Continued on 05/29/20101 by JASWINDER VIVEROS Omeprazole (Omeprazole) 20 Mg Capsule.dr, 1 CAP PO DAILY for GERD, (Reported) Entered as Reported by: JASWINDER IVVEROS on 05/29/2049 Last Taken: Unknown Dose on 05/28/20 Last Action: Converted on 05/29/20101 by JASWINDER VIVEROS Scheduled PRN Albuterol Sulfate (Proair Hfa) 8.5 Gm Hfa.aer.ad, 2 PUFF PO PRN Q4HRS PRN for SHORTNESS OF BREATH, (Reported) Entered as Reported by: JASWINDER VIVEROS on 05/29/2049 Last Taken: Unknown Dose on Unknown Date & Time Last Action: Continued on 05/29/20101 by JASWINDER VIVEROS Ubrogepant (Ubrelvy) 100 Mg Tablet, 100 MG PO PRN PRN for migraines, (Reported) Entered as Reported by: JASWINDER VIVEROS on 05/29/2049 Last Taken: Unknown Dose on Unknown Date & Time Last Action: New Order on 05/29/2049 by JASWINDER VIVEROS Justicifation of Admission Dx: Justifications for Admission: Justification of Admission Dx: Yes KEVIN SANTIZO MD May 31, 2020 14:30
--- NOTE | 2020-05-31 15:00 | NUR ---
pt discharged home with family. meds and follow up reviewed. IV removed earlier in shift. pt stable upon dc.
[2020-05-31 15:05] VITALS: BP 125/83
== END 2020-05-31 15:00 | disposition home or self-care (01) | DRG 812 ==
LOC: ER 17:45 → 2 NORTH 20:00 → 6 SOUTH 05-30 11:00
PROVIDERS: ADMIT Internal Medicine; ATTEND Internal Medicine
PROC: 30233N1 Transfusion of Nonautologous Red Blood Cells into Peripheral Vein, Percutaneous Approach (ICD-10-PCS; principal; 2020-05-29)
DX: D50.9 Iron deficiency anemia, unspecified (principal); J45.909 Unspecified asthma, uncomplicated; I10 Essential (primary) hypertension; R13.10 Dysphagia, unspecified; K21.9 Gastro-esophageal reflux disease without esophagitis; K44.9 Diaphragmatic hernia without obstruction or gangrene; G44.209 Tension-type headache, unspecified, not intractable; Z20.828 Contact with and (suspected) exposure to other viral communicable diseases; Z83.3 Family history of diabetes mellitus
CPT/HCPCS: 36415; 36430; 71045; 80053; 82274; 82525; 82607; 82668; 82728; 83010; 83520; 83540; 83550; 83615; 84165; 84466; 84550; 85014; 85018; 85025; 85045; 85610; 85730; 86850; 86900; 86901; 86920; 93005; 94640; 94760; 96374; J1756; J1885; P9016; U0003; 99285-25; G0378; J7613; J7626

== ENCOUNTER → 2020-06-21 | Outpatient (CLI) | payer BC ==
[2020-05-31 15:05] VITALS: BP 125/83
[~2020-06-21] MED LIST: ALBU2.5V8 PO; ASCO500C PO; FERR325T72 PO; FLUT1DIS5 INH; LOSA100T14 PO; MELO7.5T29 PO; OMEP20CA16 PO; UBRO100T PO
== END ==
LOC: LAB 12:27
PROVIDERS: ATTEND Internal Medicine Gastroenterology
DX: Z01.812 Encounter for preprocedural laboratory examination (principal); Z12.11 Encounter for screening for malignant neoplasm of colon; Z20.828 Contact with and (suspected) exposure to other viral communicable diseases
CPT/HCPCS: U0003

== ENCOUNTER → 2020-06-24 | Day surgery (SDC) | payer BC ==
[~2020-06-24] MED LIST changes: +GLYCOPYRROLATE 1 MG/5 ML VIAL. ONE; +HYDROmorphone 2 MG/ML VIAL IV PRN; +IV RINGERS,LACTATED 1000ML 1,000 ML IV SCH; +LIDOCAINE 1% PF 2 ML VIAL. ID PRN; +LIDOCAINE 2% PF 5 ML VIAL. ONE; +MORPHINE SULFATE 2 MG/ML VIAL. IV PRN; +ONDANSETRON PF 4 MG/2 ML VIAL. IV PRN; +PROCHLORPERAZINE 10 MG/2 ML VIAL. IV PRN; +PROPOFOL 10 MG/ML (20ML) VIAL. IV ONE; +ePHEDrine PF IN SALINE 50 MG/10 ML SYRINGE. IV ONE; +fentaNYL PF VIAL 100 MCG/2 ML VIAL IV PRN
[2020-06-24 10:00] VITALS: BP 119/83
== END | disposition home or self-care (01) ==
LOC: ENDOS 08:03
PROVIDERS: ATTEND Internal Medicine Gastroenterology
DX: D50.9 Iron deficiency anemia, unspecified (principal); R13.10 Dysphagia, unspecified; K64.0 First degree hemorrhoids; I10 Essential (primary) hypertension; K21.9 Gastro-esophageal reflux disease without esophagitis; J45.909 Unspecified asthma, uncomplicated; Z87.891 Personal history of nicotine dependence; Z79.899 Other long term (current) drug therapy; Z98.890 Other specified postprocedural states; Z72.89 Other problems related to lifestyle
CPT/HCPCS: 43450; 45378; J2704; J3490